=== PATIENT | female | born 1980 | race Caucasian/White ===

== ENCOUNTER → 2017-11-27 12:38 | Outpatient (CLI) | payer OTHER, SELFPAY | PROVIDERS: Family Provider Internal Medicine; PCP Internal Medicine; Visit Provider Physician Assistant | DX: R05 Cough (principal) | CPT/HCPCS: 87081 ==

== ENCOUNTER → 2018-03-01 11:20 | Outpatient (CLI) | payer OTHER, SELFPAY ==
[2018-03-01 15:45] LABS: Absolute Lymphocyte Count 1.53 X10^3/ul (0.83-4.51); Basophil# 0.02 X10^3/uL; Basophil% 0.3 % (0-1); Eosinophil# 0.13 X10^3/uL; Eosinophils% 1.8 % (0-5); Hematocrit 40.3 % (37-47); Hemoglobin 13.3 g/dl (12.0-15.0); Lymphocyte # 1.53 X10^3/ul (4.0); Lymphocyte % 21.3 % (19-41); Mean Corpuscular Volume 87.8 fL (81-99); Mean Platelet Vol. 9.8 fl (6.2-12.0); Monocyte# 0.48 X10^3/uL; Monocyte% 6.7 % (0-10); Neutrophil % 69.8 % (47-70); Platelet Count 336 K/mm3 (150-450); RBC Distribution Width CV 12.9 % (11.6-14.6); RBC Distribution Width SD 40.9 fl (35.1-43.9); Red Blood Count 4.59 M/mm3 (4.2-5.4); White Blood Count 7.2 K/mm3 (4.4-11.0)
[2018-03-01 15:50] LABS: POSITIVE COUNT NO; POSITIVE DIFFERENTIAL NO; POSITIVE MORPHOLOGY NO
[2018-03-01 15:54] LABS: ALB/GLOB Ratio 1.1 RATIO (0.9-2.4); AST(SGOT) 15 U/L (15-37); Alanine Aminotransfer ALT/SGPT 26 U/L (13-56); Albumin, Serum 3.8 g/dL (3.2-5.0); Alkaline Phosphatase 87 U/L (45-117); Anion Gap 8 (5-15); BUN 9 mg/dL (7-18); BUN/Creat Ratio 11.5 RATIO (10-20); Calcium,Total 8.6 mg/dL (8.5-10.1); Chloride 107 mmol/L (98-107); Cholesterol 169 mg/dL (200); Creatinine, Serum 0.78 mg/dL (0.55-1.02); EST Glomerular Filtration Rate 87 mL/min (>60); Est Glom Filt Rate - Afr Amer 106 mL/min (>60); Globulin 3.4 g/dL (2.2-4.2); Glucose 71 mg/dL (74-106); High Density Lipoprotein 46 mg/dL; Protein, Total 7.2 g/dL (6.4-8.2); Sodium Level 141 mmol/L (136-145); Triglycerides 103 mg/dL; Very Low Density Lipoprotein 21 mg/dL (5-40)
== END ==
PROVIDERS: Visit Provider Family Medicine
DX: Z00.00 Encounter for general adult medical examination without abnormal findings (principal); R03.0 Elevated blood-pressure reading, without diagnosis of hypertension
CPT/HCPCS: 36415; 80053; 80061; 85025

== ENCOUNTER → 2020-04-09 17:46 | Outpatient (CLI) | payer OTHER, SELFPAY | PROVIDERS: PCP Family Medicine; Referring Provider Family Medicine; Visit Provider Family Medicine | DX: Z20.828 Contact with and (suspected) exposure to other viral communicable diseases (principal) | CPT/HCPCS: 87635; 94799; U0003 ==

== ENCOUNTER → 2020-05-18 07:31 | Outpatient (CLI) | payer OTHER, SELFPAY ==
--- NOTE | 2020-05-18 07:35 | BI_ITS ---
MAMMOGRAPHY - BILATERAL SCREENING REASON FOR EXAM: Female, 39 years old. Routine annual screening examination. PERTINENT HISTORY: Grandmothers with breast cancer. TECHNIQUE: Digital bilateral breast iveth (3D mammographic acquisition) in the CC and MLO projections. 2-D mediolateral oblique (MLO) and craniocaudad (CC) views of both breasts were obtained. CAD: Full Field Digital Mammography with Computer Added Detection was performed. COMPARISON: None. Baseline examination. FINDINGS: Breast Composition: There are scattered areas of fibroglandular density. There are no dominant masses or suspicious calcifications. Benign-appearing bilateral axillary lymph nodes. No other significant abnormalities are identified. There has been no significant change since the prior study. BI/SCREEN MAMM (CAD) W/IVETH BILAT IMPRESSION: Stable bilateral screening mammogram. Yearly follow-up mammogram recommended. (A) ASSESSMENT CATEGORY: BIRADS Category 2: Benign. A letter regarding these results will be sent to the patient by the facility within 30 days. Approximately 10% of breast cancers are not detected by mammography. A normal mammogram should not delay biopsy of a clinically suspicious abnormality. [id number] Electronically Signed: Max Miller, at 9:00 EDT , Service support ,
[2020-05-18 12:18] LABS: Absolute Lymphocyte Count 1.35 X10^3/uL (0.83-4.51); Basophil# 0.04 X10^3/uL; Basophil% 0.6 % (0-1); Eosinophil# 0.17 X10^3/uL; Eosinophils% 2.4 % (0-5); Hematocrit 40.1 % (37-47); Hemoglobin 12.5 g/dL (12.0-15.0); Lymphocyte # 1.35 X10^3/ul (4.0); Mean Corp Hgb Conc 31.2 g/dL (32-36); Mean Corpuscular Hgb 27.7 pg (27.0-32.0); Mean Corpuscular Volume 88.7 fL (81-99); Mean Platelet Vol. 9.3 fl (6.2-12.0); Monocyte# 0.52 X10^3/uL; Monocyte% 7.3 % (0-10); NRBC Flagged by Analyzer 0 % (0-5); Neutrophil # 5.03 X10^3/uL (2.7-7.7); Neutrophil % 70.6 % (47-70); Platelet Count 421 K/mm3 (150-450); RBC Distribution Width CV 13.4 % (11.6-14.6); RBC Distribution Width SD 43.5 fl (35.1-43.9); Red Blood Count 4.52 M/mm3 (4.2-5.4); White Blood Count 7.1 K/mm3 (4.4-11.0)
[2020-05-18 12:59] LABS: ALB/GLOB Ratio 0.9 RATIO (0.9-2.4); AST(SGOT) 20 U/L (15-37); Alanine Aminotransfer ALT/SGPT 31 U/L (13-56); Albumin, Serum 3.4 g/dL (3.2-5.0); Alkaline Phosphatase 94 U/L (45-117); Anion Gap 4 (5-15); BUN 10 mg/dL (7-18); BUN/Creat Ratio 13.9 RATIO (10-20); Calcium,Total 8.8 mg/dL (8.5-10.1); Chloride 107 mmol/L (98-107); Cholesterol 222 mg/dL (200); Creatinine, Serum 0.72 mg/dL (0.55-1.02); EST Glomerular Filtration Rate 95 mL/min (>60); Est Glom Filt Rate - Afr Amer 115 mL/min (>60); Globulin 3.6 g/dL (2.2-4.2); Glucose 80 mg/dL (74-106); High Density Lipoprotein 60 mg/dL; Potassium 3.9 mmol/L (3.5-5.1); Sodium Level 137 mmol/L (136-145); Triglycerides 129 mg/dL; Very Low Density Lipoprotein 26 mg/dL (5-40)
== END ==
PROVIDERS: PCP Family Medicine; Referring Provider Obstetrics & Gynecology; Visit Provider Obstetrics & Gynecology
DX: Z12.31 Encounter for screening mammogram for malignant neoplasm of breast (principal); Z00.00 Encounter for general adult medical examination without abnormal findings; R03.0 Elevated blood-pressure reading, without diagnosis of hypertension; Z82.49 Family history of ischemic heart disease and other diseases of the circulatory system
CPT/HCPCS: 36415; 77063; 77067; 80053; 80061; 85025

== ENCOUNTER → 2020-06-10 13:35 | Outpatient (CLI) | payer OTHER, SELFPAY ==
--- NOTE | 2020-06-10 13:39 | VDLE_ITS ---
Reason For Study: Swelling Procedure LEFT This is a venous duplex using B-mode, color GSV is normal. flow and spectral Doppler. CFV is compressible, spontaneous, phasic, Exam performed in department. competent, and demonstrates normal A preliminary report was called and/or faxed augmentation. to Priyanka Qiu. FV is compressible, spontaneous, phasic, competent and demonstrates normal augmentation. POP V is compressible, spontaneous, phasic, competent and demonstrates normal augmentation. T/P Trunk is compressible. PTV is compressible. LT PerV is compressible. Interpretation Summary Deep veins of the left lower extremity are patent and compressible segmentally. There is no evidence of left lower extremity deep vein thrombosis. Valvular competence appears intact within the proximal deep venous system on the left . The left great saphenous vein appears patent and compressible segmentally. Ordering Physician: Jeanne Baer Referring Physician: Rose Aden Performed By: Kassi Small RVT and Student
== END ==
PROVIDERS: PCP Family Medicine; Referring Provider Obstetrics & Gynecology; Visit Provider Obstetrics & Gynecology
DX: M79.672 Pain in left foot (principal); R22.42 Localized swelling, mass and lump, left lower limb
CPT/HCPCS: 93971

== ENCOUNTER → 2020-08-04 08:33 | Outpatient (CLI) | payer OTHER, SELFPAY ==
[2020-08-04 12:34] LABS: Anion Gap 9 (5-15); BUN 11 mg/dL (7-18); BUN/Creat Ratio 13.3 RATIO (10-20); Calcium,Total 8.6 mg/dL (8.5-10.1); Chloride 104 mmol/L (98-107); Creatinine, Serum 0.83 mg/dL (0.55-1.02); EST Glomerular Filtration Rate 81 mL/min (>60); Est Glom Filt Rate - Afr Amer 98 mL/min (>60); Glucose 86 mg/dL (74-106); Potassium 3.8 mmol/L (3.5-5.1); Sodium Level 137 mmol/L (136-145)
== END ==
PROVIDERS: PCP Family Medicine; Visit Provider Family Medicine
DX: I10 Essential (primary) hypertension (principal)
CPT/HCPCS: 36415; 80048

== ENCOUNTER → 2021-07-28 15:38 | Outpatient (CLI) | payer OTHER, SELFPAY ==
--- NOTE | 2021-07-28 15:41 | BI_ITS ---
MAMMOGRAPHY - BILATERAL SCREENING REASON FOR EXAM: Female, 41 years old. Routine annual screening examination. PERTINENT HISTORY: Grandmother with breast cancer. TECHNIQUE: Digital bilateral breast iveth (3D mammographic acquisition) in the CC and MLO projections. 2-D mediolateral oblique (MLO) and craniocaudad (CC) views of both breasts were obtained. CAD: Full Field Digital Mammography with Computer Added Detection was performed. COMPARISON: Comparison is made with prior study dated 04/28/2020. FINDINGS: Breast Composition: There are scattered areas of fibroglandular density. There are no dominant masses or suspicious calcifications. No other significant abnormalities are identified. There has been no significant change since the prior study. BI/SCRN MAMM (CAD)W/IVETH BILAT IMPRESSION: Stable bilateral screening mammogram. Yearly follow-up mammogram recommended. (A) ASSESSMENT CATEGORY: BIRADS Category 1: Negative. A letter regarding these results will be sent to the patient by the facility within 30 days. Approximately 10% of breast cancers are not detected by mammography. A normal mammogram should not delay biopsy of a clinically suspicious abnormality. [id number] Electronically Signed: Max Miller MD at 8:17 EST , Service support ,
== END ==
PROVIDERS: PCP Family Medicine; Referring Provider Obstetrics & Gynecology; Visit Provider Obstetrics & Gynecology
DX: Z12.31 Encounter for screening mammogram for malignant neoplasm of breast (principal); Z80.3 Family history of malignant neoplasm of breast
CPT/HCPCS: 77063; 77067

== ENCOUNTER → 2022-08-08 | Outpatient (CLI) | payer OTHER, SELFPAY ==
--- NOTE | 2022-08-08 16:04 | BI_ITS ---
MAMMOGRAPHY - BILATERAL SCREENING REASON FOR EXAM: Female, 42 years old. Routine annual screening examination. PERTINENT HISTORY: Grandmothers with breast cancer. TECHNIQUE: Digital bilateral breast iveth (3D mammographic acquisition) in the CC and MLO projections. 2-D mediolateral oblique (MLO) and craniocaudad (CC) views of both breasts were obtained. CAD: Full Field Digital Mammography with Computer Added Detection was performed. COMPARISON: Comparison is made with prior study dated 07/28/2021 and 05/18/2020. FINDINGS: Breast Composition: There are scattered areas of fibroglandular density. There are no dominant masses or suspicious calcifications. No other significant abnormalities are identified. There has been no significant change since the prior study. BI/SCRN MAMM (CAD)W/IVETH BILAT IMPRESSION: Stable bilateral screening mammogram. Yearly follow-up mammogram recommended. (A) ASSESSMENT CATEGORY: BIRADS Category 1: Negative. A letter regarding these results will be sent to the patient by the facility within 30 days. Approximately 10% of breast cancers are not detected by mammography. A normal mammogram should not delay biopsy of a clinically suspicious abnormality. [id number] Electronically Signed: Max Miller MD at 9:06 EST ,
== END | disposition home or self-care (01) ==
PROVIDERS: PCP Family Medicine; Referring Provider Obstetrics & Gynecology; Visit Provider Obstetrics & Gynecology
DX: Z12.31 Encounter for screening mammogram for malignant neoplasm of breast (principal); Z80.3 Family history of malignant neoplasm of breast
CPT/HCPCS: 77063; 77067

== ENCOUNTER → 2023-08-10 | Outpatient (CLI) | payer OTHER, SELFPAY ==
--- NOTE | 2023-08-10 16:04 | BI_ITS ---
MAMMOGRAPHY - BILATERAL SCREENING REASON FOR EXAM: Female, 43 years old. Routine annual screening examination. PERTINENT HISTORY: Grandmother with breast cancer. TECHNIQUE: Digital bilateral breast iveth (3D mammographic acquisition) in the CC and MLO projections. 2-D mediolateral oblique (MLO) and craniocaudad (CC) views of both breasts were obtained. CAD: Full Field Digital Mammography with Computer Added Detection was performed. COMPARISON: Comparison is made with prior study dated August 08, 2022 and July 28, 2021. FINDINGS: Breast Composition: There are scattered areas of fibroglandular density. There are no dominant masses or suspicious calcifications. No other significant abnormalities are identified. There has been no significant change since the prior study. BI/SCRN MAMM (CAD)W/IVETH BILAT IMPRESSION: Stable bilateral screening mammogram. Yearly follow-up mammogram recommended. (A) ASSESSMENT CATEGORY: BIRADS Category 1: Negative. A letter regarding these results will be sent to the patient by the facility within 30 days. Approximately 10% of breast cancers are not detected by mammography. A normal mammogram should not delay biopsy of a clinically suspicious abnormality. [id number] Electronically Signed: Max Miller MD at 8:11 EST ,
== END | disposition home or self-care (01) ==
LOC: OPBI 08-11 08:09
PROVIDERS: PCP Family Medicine; Referring Provider Family Medicine; Visit Provider Family Medicine
DX: Z12.31 Encounter for screening mammogram for malignant neoplasm of breast (principal)
CPT/HCPCS: 77063; 77067

== ENCOUNTER → 2023-08-17 | Outpatient (CLI) | payer OTHER, SELFPAY ==
--- OUTSIDE RECORDS SUMMARY | 2023-08-17 10:59 | XMS RPT_ITS | CCD ---
Author Name Unknown Address [facility], [address] [place] [address] Organization [facility] Care Team Providers Care Layout Operator Name Role Phone Rose Aden Primary Care Provider [phone] Allergies Allergy Classification Reported Allergen(s) Allergy Type Date of Onset Reaction(s) Facility (3 sources) Amoxicillin / Clavulanate; Translations: [AMOXICILLIN-POT CLAVULANATE] Drug Allergy 10-14-2015 Rash [facility] Medications Current Medications Medication Drug Class(es) Dates Sig (Normalized) Sig (Original) doxycycline monohydrate 100 mg oral tablet (2 sources) Tetracycline-cla ss Drug Start: 07-12-2022 End: 07-19-2022 take 1 tablet by mouth twice daily doxycycline monohydrate 100 mg tablet Indications: Rhinosinusitis Take 1 tablet by mouth twice daily for 7 days. 14 tablet 0 07/12/2022 07/19/2022 Active Completed/Discontinued Medications Medication Drug Class(es) Dates Sig (Normalized) Sig (Original) losartan potassium 25 mg oral tablet (2 sources) Angiotensin 2 Receptor Matti Start: 06-14-2022 take 1 tablet by mouth once daily losartan (COZAAR) 25 mg tablet Take 25 mg by mouth once daily. 0 06/14/2022 Active Problems Problem Classification Problem Date Documented Da te Episodic/Chronic Other upper respiratory disease (1 source) Chronic rhinitis; Translations: [Unspecified sinusitis (chronic)] Chronic Other upper respiratory infections (1 source) Viral upper respiratory tract infection; Translations: [Acute upper respiratory infection, unspecified] Episodic Results Test Name Value Interpretation Reference Range Facil ity Vital Signs Date Time Vital Sign Value Performing Clinician Faci lity 07-12-2022 18:15-0500 Body temperature 97.59 [degF] Sally Etienne APRN.PROCESSOR GRAIN Work Phone: [facility] 07-12-2022 18:15-0500 Body weight 101.61 kg Sally Etienne APRN.PROCESSOR GRAIN Work Phone: [facility] 07-12-2022 18:15-0500 Diastolic blood pressure 76 mm[Hg] Sally Etienne APRN.PROCESSOR GRAIN Work Phone: [facility] 07-12-2022 18:15-0500 Heart rate 105 /min Sally Etienne APRN.PROCESSOR GRAIN Work Phone: [facility] 07-12-2022 18:15-0500 Respiratory rate 18 /min Sally Etienne APRN.PROCESSOR GRAIN Work Phone: [facility] 07-12-2022 18:15-0500 SaO2% (BldA) [Mass fraction] 98 % Sally Eitenne APRN.PROCESSOR GRAIN Work Phone: [facility] 07-12-2022 18:15-0500 Systolic blood pressure 128 mm[Hg] Sally Etienne APRN.PROCESSOR GRAIN Work Phone: [facility] Encounters Encounter Date Encounter Type Care Provider Facility Start: 07-13-2022 Telephone encounter Patricia Stein MIKY.PROCESSOR GRAIN Work Phone: [facility] Plan of Treatment Date Care Activity Detail Author Start: 12-22-2026 Urine microalbumin profile DTAP,TDAP,TD (2 - Td or Tdap) [facility] Start: 07-12-2022 End: 07-26-2022 Influenza virus A and B RNA and SARS-CoV-2 (COVID-19) N gene panel - Respiratory specimen by ALIA with probe detection COVID WITH FLUA+B, ROUTINE Microbiology Routine Viral URI with cough Expected: 07/12/2022, Expires: 07/26/2022 [facility] Work Phone: Immunizations Immunization Date Immunization Notes Care Provider Fa kory 12-22-2016 tetanus toxoid, redu harsha diphtheria toxoid, and acellular pertussis vaccine, adsorbed Sally Etienne APRN.PROCESSOR GRAIN Work Phone: [facility] 07-12-2015 influenza, seasonal, injectable, preservative free Sally Jaimie CHAVEZ Work Phone: [facility] Payers Date Payer Category Payer Unknown [facility] [id number] 2022-Present [phone] [address] [place] [address] [facility] [id number] 2022 Unknown [id number] Social History Date Type Detail Facility Start: 07-12-2022 Tobacco smoking stat [facility] Never smoked tobacco [facility] Start: 07-12-2022 Tobacco use and exposure Smokeless tobacco non-user [facility] Start: 07-12-2022 Alcohol intake Lifetime non-d jostin (finding) [facility] Start: 1980 Sex Assigned At Not on file [facility] Start: 2022 End: 07-12-2022 Exposure to SARS-CoV-2 (event) Not sure [facility] Work Phone: Note 07-13-2022 Telephone Encounter - Bridget Giraldo - 07/13/2022 7:03 AM ESTTelephone Encounter - Patricia Stein APRN.CNP - 07/13/2022 6:55 AM EST Note Date & Type Note Facility 07-13-2022 Miscellaneous Notes Formattin g of this note might be different from the original. Patient given results and verbalized understanding of instructions given. Bridget Giraldo Please notify of negative influenza and covid test. Continue comfort measures for symptoms as you would for a cold. Any worsening symptoms follow up with PCP or ER. Patricia Stein APRN.CNP documented in this encounter [facility] Influenza virus A and B RNA and SARS-CoV-2 (COVID-19) N gene panel ALIA+probe (Resp) 07-12-2022 Note Date & Type Note Facility 07-12-2022 Influenza virus A and B RNA and SARS-CoV-2 (COVID-19) N gene panel ALIA+probe (Resp) COVID 19 RESULT: SARS-CoV-2 (Agent of COVID-19) Not Detected by RT-PCR or equivalent method. sun [id number] (EVARISTO)_EUA This test was developed and its performance characteristics determined by [facility]'s [facility] [place]. This test has been authorized by FDA under an Emergency Use Authorization (EUA). This test has been validated in accordance with the FDA's Guidance Document Policy for Diagnostics Testing in Laboratories Certified to Perform High Complexity Testing under CLIA prior to Emergency use Authorization for Coronavirus Disease 2019 during the Public Health Emergency issued on October 19, 2019. Test performed by [facility], [facility] [place], [address] [place] [address]. INFLUENZA A PCR: Negative for Influenza A by RT-PCR INFLUENZA B PCR: Negative for Influenza B by RT-PCR [facility] Progress note 07-12-2022 Note Date & Type Note Facility 07-12-2022 Note HNO ID: [id number] Author: Sally Etienne APRN.PROCESSOR GRAIN Service: ? Author Type: Nurse Practitioner Type: Progress Notes Filed: 07/12/2022 6:30 PM Note Text: Subjective Headache Pertinent negatives include no fever, no shortness of breath, no nausea and no vomiting. Sada Avila is a 42 year old female who presents with headache, congestion, cough, sinus pain. Has had symptoms for 2 weeks but felt worse today. She has been taking tylenol, dayquil, nyquil, and mucinex without improvement. She has not had a fever. She has had sick contacts at work. Review of Systems Constitutional: Negative for chills and fever. HENT: Positive for congestion, ear pain and sinus pain. Negative for sore throat. Respiratory: Positive for cough. Negative for shortness of breath. Cardiovascular: Negative for chest pain. Gastrointestinal: Negative for diarrhea, nausea and vomiting. Neurological: Positive for headaches. BP 128/76 Pulse 105 Temp 36.4 ?C (97.6 ?F) Resp 18 Wt 101.6 kg (224 lb) LMP 11/14/2018 (Approximate) SpO2 98% No past medical history on file. No past surgical history on file. ALLERGIES Augmentin [Amoxicillin-Pot Clavulanate] MEDICATIONS losartan (COZAAR) 25 mg tablet Take 25 mg by mouth once daily. megestrol (MEGACE) 40 mg tablet Take 40 mg by mouth once daily. doxycycline monohydrate 100 mg tablet Take 1 tablet by mouth twice daily for 7 days. No family history on file. Social History Tobacco Use Smoking status: Never Smokeless tobacco: Never Substance Use Topics Alcohol use: Never Drug use: Never Objective Physical Exam Vitals and nursing note reviewed. Constitutional: Appearance: Normal appearance. HENT: Right Ear: Tympanic membrane, ear canal and external ear normal. Left Ear: Tympanic membrane, ear canal and external ear normal. Nose: Nasal tenderness, mucosal edema, congestion and rhinorrhea present. Mouth/Throat: Pharynx: Uvula midline. No oropharyngeal exudate or posterior oropharyngeal erythema. Cardiovascular: Rate and Rhythm: Normal rate and regular rhythm. Heart sounds: Normal heart sounds. Pulmonary: Effort: Pulmonary effort is normal. No respiratory distress. Breath sounds: Normal breath sounds. No wheezing or rales. Musculoskeletal: Cervical back: Neck supple. Lymphadenopathy: Cervical: No cervical adenopathy. Skin: General: Skin is warm and dry. Findings: No erythema or rash. Neurological: Mental Status: She is alert. ASSESSMENT/PLAN: 1. Rhinosinusitis - ICD9: 473.9, ICD10: J31.0, J32.9 (primary diagnosis) - Will begin treatment with as per antibiotic as written, see orders - Supportive care with plenty of fluids, rest, and analgesia prn. - DOXYCYCLINE MONOHYDRATE 100 MG TABLET 2. Viral URI with cough - ICD9: 465.9, ICD10: J06.9 - Discussed viral etiology and rationale for treatment. - Symptomatic treatment with prn analgesia - Supportive care with fluids and rest - COVID WITH FLUA+B, ROUTINE - Follow-up with your PCP in 3-5 days if symptoms have not improved or sooner if symptoms worsen - Discussed red flags and need for immediate medical evaluation if any occur. - Discussed supportive care treatment with fluids, rest and analgesia. - Discussed expected course of illness Sally Etienne APRN.JAZZY [facility] History of Present illness Narrative 07-12-2022 Sally Etienne APRN.JAZZY - 07/12/2022 6:28 PM EST Note Date & Type Note Facility 07-12-2022 History of Presen t illness Narrative Subjective Headache Pertinent negatives include no fever, no shortness of breath, no nausea and no vomiting. Sada Avila is a 42 year old female who presents with headache, congestion, cough, sinus pain. Has had symptoms for 2 weeks but felt worse today. She has been taking tylenol, dayquil, nyquil, and mucinex without improvement. She has not had a fever. She has had sick contacts at work. Review of Systems Constitutional: Negative for chills and fever. HENT: Positive for congestion, ear pain and sinus pain. Negative for sore throat. Respiratory: Positive for cough. Negative for shortness of breath. Cardiovascular: Negative for chest pain. Gastrointestinal: Negative for diarrhea, nausea and vomiting. Neurological: Positive for headaches. BP 128/76 Pulse 105 Temp 36.4 C (97.6 F) Resp 18 Wt 101.6 kg (224 lb) LMP 11/14/2018 (Approximate) SpO2 98% No past medical history on file. No past surgical history on file. ALLERGIES Augmentin [Amoxicillin-Pot Clavulanate] MEDICATIONS losartan (COZAAR) 25 mg tablet Take 25 mg by mouth once daily. megestrol (MEGACE) 40 mg tablet Take 40 mg by mouth once daily. doxycycline monohydrate 100 mg tablet Take 1 tablet by mouth twice daily for 7 days. No family history on file. Social History Tobacco Use Smoking status: Never Smokeless tobacco: Never Substance Use Topics Alcohol use: Never Drug use: Never Objective Physical Exam Vitals and nursing note reviewed. Constitutional: Appearance: Normal appearance. HENT: Right Ear: Tympanic membrane, ear canal and external ear normal. Left Ear: Tympanic membrane, ear canal and external ear normal. Nose: Nasal tenderness, mucosal edema, congestion and rhinorrhea present. Mouth/Throat: Pharynx: Uvula midline. No oropharyngeal exudate or posterior oropharyngeal erythema. Cardiovascular: Rate and Rhythm: Normal rate and regular rhythm. Heart sounds: Normal heart sounds. Pulmonary: Effort: Pulmonary effort is normal. No respiratory distress. Breath sounds: Normal breath sounds. No wheezing or rales. Musculoskeletal: Cervical back: Neck supple. Lymphadenopathy: Cervical: No cervical adenopathy. Skin: General: Skin is warm and dry. Findings: No erythema or rash. Neurological: Mental Status: She is alert. ASSESSMENT/PLAN: 1. Rhinosinusitis - ICD9: 473.9, ICD10: J31.0, J32.9 (primary diagnosis) - Will begin treatment with as per antibiotic as written, see orders - Supportive care with plenty of fluids, rest, and analgesia prn. - DOXYCYCLINE MONOHYDRATE 100 MG TABLET 2. Viral URI with cough - ICD9: 465.9, ICD10: J06.9 - Discussed viral etiology and rationale for treatment. - Symptomatic treatment with prn analgesia - Supportive care with fluids and rest - COVID WITH FLUA+B, ROUTINE - Follow-up with your PCP in 3-5 days if symptoms have not improved or sooner if symptoms worsen - Discussed red flags and need for immediate medical evaluation if any occur. - Discussed supportive care treatment with fluids, rest and analgesia. - Discussed expected course of illness Sally Etienne APRN.JAZZY documented in this encounter [facility] Instructions 07-12-2022 Patient Instructions Note Date & Type Note Facility 07-12-2022 Instructions Sally Etienne APRN.CNP - 07/12/2022 6:27 PM EST Images from the original note were not included. ASSESSMENT/PLAN: 1. Rhinosinusitis - ICD9: 473.9, ICD10: J31.0, J32.9 (primary diagnosis) - Will begin treatment with as per antibiotic as written, see orders - Supportive care with plenty of fluids, rest, and analgesia prn. - DOXYCYCLINE MONOHYDRATE 100 MG TABLET 2. Viral URI with cough - ICD9: 465.9, ICD10: J06.9 - Discussed viral etiology and rationale for treatment. - Symptomatic treatment with prn analgesia - Supportive care with fluids and rest - COVID WITH FLUA+B, ROUTINE - Follow-up with your PCP in 3-5 days if symptoms have not improved or sooner if symptoms worsen - Discussed red flags and need for immediate medical evaluation if any occur. - Discussed supportive care treatment with fluids, rest and analgesia. - Discussed expected course of illness Sally Etienne APRN.CNP Adult Sinusitis Patient Education What is Sinusitis? Sinusitis [axhq-sgf-[id number]-[id number]] is inflammation of the sinuses or swelling of the lining of the sinus cavity or nose. During an infection the sinuses become blocked with fluid causing swelling of the lining of the sinuses. Symptoms: (viral and bacterial infections) Stuffy nose Runny nose Postnasal drip Fever Toothache Headache Tiredness Cough Sore throat Face and head pressure and or pain Common causes: 98% of sinus infections are viral caused by viruses. Risk Factors of Sinusitis Include: Allergies, air pollution, indoor humidity and outdoor temperature changes, andstructural changes in the nose may contribute to sinus pain, pressure and congestion. When to get help? Temperature greater than 100.4 F Symptoms lasting more than 10 days or worsening symptoms greater than 7-10 days. If you do not improve or worsen after a course of antibiotics, you should be re-examined. Diagnosis and Treatment: Your healthcare provider will ask a number of questions about your symptoms and how long they have occurred. If symptoms of sinusitis persist greater than 10 days, it is possible you have a bacterial sinus infection and an antibiotic is prescribed. If it is viral, antibiotics will not help. You may be instructed to take [id number]-[id number] medications for symptoms. including fever reducers acetaminophen or ibuprofen, nasal saline spray, cough and cold preparations and decongestants as prescribed by the physician, nurse practitioner or physician warehouse assistant. Self-Care and Prevention: Rest Fluids for hydration Good hand washing Humidifier Avoid smoking and exposure to second hand smoke Avoid sick contacts documented in this encounter [facility] Evaluation note Note Date & Type Note Facility documented in this encounter [facility] Health Concerns Infection Onset Date Last Indicated Resolved Time COVID-19 Rule-Out 07/12/2022 07/12/2022 Infection Onset Date Last Indicated Resolved Time COVID-19 Rule-Out 07/12/2022 07/12/202207/1307/13/2022 6:44 AM EST Summary Purpose Family History No Family History Records Found Advance Directives No Advanced Directives Records Found Additional Source Comments Source Comments (unrecognize d section and content) In the event this informatio n is protected by the Federal Confidentiality of Alcohol and Drug Abuse Patient Records regulations: The Federal rules restrict any use of the information to criminally investigate or prosecute any alcohol or drug abuse patient.[facility] the event this information is protected by the Federal Confidentiality of Alcohol and Drug Abuse Patient Records regulations: The Federal rules restrict any use of the information to criminally investigate or prosecute any alcohol or drug abuse patient.[facility] Reason for Visit (unrecogniz ed section and content) Reason Comments Results Care Teams (unrecognized sec tion and content) Layout Operator Relationship Specialty Start Date End Date Rose Aden [address] [place] [address] PCP - General Family Medicine 11/21/18 INFORMATION SOURCE (unrecogn ized section and content) FOR RECORDS PERTAINING TO PATIENTS WHO ARE OR HAVE BEEN ENROLLED IN A CHEMICAL DEPENDENCY/SUBSTANCEABUSE PROGRAM, SOME INFORMATION MAY BE OMITTED. This clinical summary was aggregated from multiple sources. Caution should be exercised in using it in the provision of clinical care. This summary normalizes information from multiple sources, and as a consequence, information in this document may materially change the coding, format and clinical context of patient data. In addition, data may be omitted in some cases. CLINICAL DECISIONS SHOULD BE BASED ON THE PRIMARY CLINICAL RECORDS. [facility]. provides no warranty or guarantee of the accuracy or completeness of information in this document.
[2023-08-17 12:17] LABS: Absolute Lymphocyte Count 1.75 X10^3/uL (0.83-4.51); Absolute Neutrophil Count 6.7 X10^3/uL (2.0-7.7); Basophil# 0.05 X10^3/uL; Basophil% 0.5 % (0-1); Eosinophil# 0.18 X10^3/uL; Eosinophils% 1.9 % (0-5); Hematocrit 43.4 % (37-47); Hemoglobin 13.7 g/dL (12.0-15.0); Lymphocyte # 1.75 X10^3/ul (0.83-4.51); Lymphocyte % 18.6 % (19-41); Mean Corp Hgb Conc 31.6 g/dL (32-36); Mean Corpuscular Hgb 27.9 pg (27.0-32.0); Mean Corpuscular Volume 88.4 fL (81-99); Mean Platelet Vol. 9.3 fl (6.2-12.0); Monocyte# 0.69 X10^3/uL; Monocyte% 7.3 % (0-10); NRBC Flagged by Analyzer 0 % (0-5); Neutrophil # 6.68 X10^3/uL (2.7-7.7); Neutrophil % 71.3 % (47-70); Platelet Count 401 K/mm3 (150-450); RBC Distribution Width CV 13.3 % (11.6-14.6); RBC Distribution Width SD 43.2 fl (35.1-43.9); Red Blood Count 4.91 M/mm3 (4.2-5.4); White Blood Count 9.4 K/mm3 (4.4-11.0)
[2023-08-17 12:37] LABS: ALB/GLOB Ratio 1.1 RATIO (0.9-2.4); AST(SGOT) 16 U/L (15-37); Alanine Aminotransfer ALT/SGPT 39 U/L (13-56); Albumin, Serum 3.7 g/dL (3.2-5.0); Alkaline Phosphatase 95 U/L (45-117); Anion Gap 7 (5-15); BUN 12 mg/dL (7-18); BUN/Creat Ratio 14.4 RATIO (10-20); Calcium,Total 9.2 mg/dL (8.5-10.1); Chloride 110 mmol/L (98-107); Cholesterol 189 mg/dL (200); Creatinine, Serum 0.84 mg/dL (0.55-1.02); EST Glomerular Filtration Rate 79 mL/min (>60); Est Glom Filt Rate - Afr Amer 95 mL/min (>60); Globulin 3.5 g/dL (2.2-4.2); Glucose 95 mg/dL (74-106); High Density Lipoprotein 33 mg/dL; Potassium 3.9 mmol/L (3.5-5.1); Protein, Total 7.2 g/dL (6.4-8.2); Sodium Level 141 mmol/L (136-145); Triglycerides 68 mg/dL; Very Low Density Lipoprotein 14 mg/dL (5-40)
== END | disposition home or self-care (01) ==
LOC: BFHLAB 10:25
PROVIDERS: PCP Family Medicine; Visit Provider Family Medicine
DX: I10 Essential (primary) hypertension (principal); R19.7 Diarrhea, unspecified
CPT/HCPCS: 36415; 80053; 80061; 85025

== ENCOUNTER → 2023-10-26 | Outpatient (CLI) | payer OTHER, SELFPAY ==
[2023-10-31 21:07] LABS: HPV APTIMA, High Risk Negative (Negative)
== END | disposition home or self-care (01) ==
PROVIDERS: PCP Family Medicine; Visit Provider Advanced Practice Midwife
DX: Z12.4 Encounter for screening for malignant neoplasm of cervix (principal)
CPT/HCPCS: 87624; 88175; G0145

== ENCOUNTER → 2023-11-03 | Outpatient (CLI) | payer OTHER, SELFPAY ==
--- NOTE | 2023-11-03 11:26 | US_ITS ---
STUDY: ULTRASOUND TRANSVAGINAL CLINICAL: Female, 43 years old. abnormal uterine bleeding TECHNIQUE: Transvaginal COMPARISON: None. FINDINGS: Normal uterine size measuring 7.4 x 4.2 x 4.5 cm in maximal craniocaudal dimension. 0.7 cm round hypoechoic mass within the anterior body of uterus consistent with a subserosal fibroid. Another 0.7 cm hypoechoic mass within the myometrium in the posterior fundus the uterus consistent with an intramural fibroid.. Normal endometrial thickness measuring 6 mm. 1 cm hypoechoic mass within the endometrium and correlation with hysteroscopy would be useful.. Normal uterine cervix. Normal right ovary, measuring 3.4 x 2.3 x 1.1 cm. There are multiple follicles without a dominant cyst. Normal left ovary, measuring 2.1 x 1.6 x 1.3 cm. There are multiple follicles without a dominant cyst. There is no free fluid in the pelvis. Polycystic ovary disease: No. US/Transvaginal Non- IMPRESSION: 1. 1 cm endometrial mass and correlation with hysteroscopy would be useful. 2. Small uterine fibroids with overall normal sized uterus. Electronically Signed: Dino June MD at 21:52 EDT ,
--- OUTSIDE RECORDS SUMMARY | 2023-11-03 13:53 | XMS RPT_ITS | CCD ---
Author Name Unknown Address [address] [facility] [address] [place] [address] Organization [facility] Care Team Providers Care Motion Picture Equipment Machinist Name Role Phone Rose Aden Primary Care Provider Allergies Allergy Classification Reported Allergen(s) Allergy Type Date of Onset Reaction(s) Facility (3 sources) Amoxicillin / Clavulanate; Translations: [AMOXICILLIN-POT CLAVULANATE] Drug Allergy 10-14-2015 Rash [facility] Medications Current Medications Medication Drug Class(es) Dates [...] 18:15-0500 Body temperature 97.59 [degF] Sally Etienne APRN.ELECTRONIC WARFARE SPECIALIST Work Phone: [facility] 07-12-2022 18:15-0500 Body weight 101.61 kg Sally Etienne APRN.ELECTRONIC WARFARE SPECIALIST Work Phone: [facility] 07-12-2022 18:15-0500 Diastolic blood pressure 76 mm[Hg] Sally Etienne APRN.ELECTRONIC WARFARE SPECIALIST Work Phone: [facility] 07-12-2022 18:15-0500 Heart rate 105 /min Sally Etienne APRN.ELECTRONIC WARFARE SPECIALIST Work Phone: [facility] 07-12-2022 18:15-0500 Respiratory rate 18 /min Sally Etienne APRN.ELECTRONIC WARFARE SPECIALIST Work Phone: [facility] 07-12-2022 18:15-0500 SaO2% (BldA) [Mass fraction] 98 % Sally Etienne APRN.ELECTRONIC WARFARE SPECIALIST Work Phone: [facility] 07-12-2022 18:15-0500 Systolic blood pressure 128 mm[Hg] Sally Etienne APRN.ELECTRONIC WARFARE SPECIALIST Work Phone: [facility] Encounters Encounter Date Encounter Type Care Provider Facility Start: 07-13-2022 Telephone encounter Patricia Stein MIKY.ELECTRONIC WARFARE SPECIALIST Work Phone: [facility] Plan of Treatment Date Care Activity Detail Author Start: 12-22-2026 Urine microalbumin profile DTAP,TDAP,TD (2 - Td or Tdap) [facility] Start: 07-12-2022 End: 07-26-2022 Influenza virus A and B RNA and SARS-CoV-2 (COVID-19) N gene panel - Respiratory specimen by ALIA with probe detection COVID WITH FLUA+B, ROUTINE Microbiology Routine Viral URI with cough Expected: 07/12/2022, Expires: 07/26/2022 [facility] Work Phone: Immunizations Immunization Date Immunization Notes Care Provider Sarah horn 12-22-2016 tetanus toxoid, redu harsha diphtheria toxoid, and acellular pertussis vaccine, adsorbed Sally Etienne APRN.ELECTRONIC WARFARE SPECIALIST Work Phone: [facility] 07-12-2015 influenza, seasonal, injectable, preservative free Sally Jaimie CHAVEZ Work Phone: [facility] Payers Date Payer Category Payer Unknown MMO [facility] [id number] 2022-Present [phone] [address] [place] [address] [facility] [id number] 2022 Unknown [id number] Social History Date Type Detail Facility Start: 07-12-2022 Tobacco smoking stat [facility] Never smoked tobacco [facility] Start: 07-12-2022 Tobacco use and exposure Smokeless tobacco non-user [facility] Start: 07-12-2022 Alcohol intake Lifetime non-d jostin (finding) [facility] Start: 1980 Sex Assigned At Not on file C [facility] Start: 2022 End: 07-12-2022 Exposure to SARS-CoV-2 (event) Not sure [facility] Work Phone: Note 07-13-2022 Telephone Encounter - [...] Patricia Stein APRN.CNP documented in this encounter [facility] Influenza virus A and B RNA and SARS-CoV-2 (COVID-19) N gene panel ALIA+probe (Resp) 07-12-2022 Note Date & Type Note Facility 07-12-2022 Influenza virus A and B RNA and SARS-CoV-2 (COVID-19) N gene panel ALIA+probe (Resp) COVID 19 RESULT: SARS-CoV-2 (Agent of COVID-19) Not Detected by RT-PCR or equivalent method. sun [id number] (EVARISTO)_EUA This test was developed and its performance characteristics determined by [facility]'s [facility] [place]. This test has been authorized by FDA under an Emergency Use Authorization (EUA). This test has been validated in accordance with the FDA's Guidance Document Policy for Diagnostics Testing in Laboratories Certified to Perform High Complexity Testing under CLIA prior to Emergency use Authorization for Coronavirus Disease 2019 during the Public Health Emergency issued on October 19, 2019. Test performed by [facility], [facility] [place], [address] [place] [address]. INFLUENZA A PCR: Negative for Influenza A by RT-PCR INFLUENZA B PCR: Negative for Influenza B by RT-PCR [facility] Progress note 07-12-2022 Note Date & Type Note Facility 07-12-2022 Note HNO ID: [id number] Author: Sally Etienne APRN.ELECTRONIC WARFARE SPECIALIST Service: ? Author Type: Nurse Practitioner Type: [...] expected course of illness Sally Etienne APRN.JAZZY [facility] History of Present illness Narrative 07-12-2022 Sally [...] expected course of illness Sally Etienne APRN.CNP documented in this encounter [facility] Instructions 07-12-2022 Patient Instructions Note Date & [...] Sinusitis Patient Education What is Sinusitis? Sinusitis [xslu-ehz-dffj-tis] is inflammation of the sinuses or swelling [...] help. You may be instructed to take aift-ked-pprjfia medications for symptoms. including fever reducers acetaminophen or ibuprofen, nasal saline spray, cough and cold preparations and decongestants as prescribed by the physician, nurse practitioner or physician administrative personal assistant. Self-Care and Prevention: Rest Fluids for hydration Good hand washing Humidifier Avoid smoking and exposure to second hand smoke Avoid sick contacts documented in this encounter [facility] Evaluation note Note Date & Type Note Facility documented in this encounter [facility] Health Concerns Infection Onset Date Last Indicated Resolved Time COVID-19 Rule-Out 07/12/2022 07/12/2022 Infection Onset Date Last Indicated Resolved Time COVID-19 Rule-Out 07/12/2022 07/12/2022 07/13/2022 6:44 AM EST Summary Purpose Family History [...] or prosecute any alcohol or drug abuse [facility] the event this information is protected by the Federal Confidentiality of Alcohol and Drug Abuse Patient Records regulations: The Federal rules restrict any use of the information to criminally investigate or prosecute any alcohol or drug abuse patient.[facility] Reason for Visit (unrecogniz ed section and content) Reason Comments Results Care Teams (unrecognized sec tion and content) Motion Picture Equipment Machinist Relationship Specialty Start Date End Date Rose Aden [address] [place] [address] PCP - General Family Medicine 11/21/18 INFORMATION [...] BE BASED ON THE PRIMARY CLINICAL RECORDS. [facility] provides no warranty or guarantee of the accuracy or completeness of information in this document.
== END | disposition home or self-care (01) ==
LOC: US 11:25
PROVIDERS: PCP Family Medicine; Referring Provider Advanced Practice Midwife; Visit Provider Advanced Practice Midwife
DX: N93.9 Abnormal uterine and vaginal bleeding, unspecified (principal)
CPT/HCPCS: 76830

== ENCOUNTER 2023-12-05 13:11 | Day surgery (SDC) | payer OTHER, SELFPAY ==
[2023-12-05] VITALS (8 sets, daily range): BP systolic 123–151; BP diastolic 71–95; PULSE 64–104; RESP 12–18; TEMP 36.8–37.6; O2SAT 94–100; BMI 40.1
--- NOTE | 2023-12-05 06:03 | HP.PCM_ITS ---
History and Physical Date of Admission: 12/05/23 Intake Vital Signs 10/25/2413:26 11/13/2409:10 11/13/2409:12 Height 5 ft 3 in 5 ft 3 in 5 ft 3 in Weight: 221 lb BMI 39.1 BP 143/97 H Intake Visit Reasons: Preop consult per [facility] [employer] Insurance Assessor Required: No Is patient in pain?: No Allergies No Known Allergies Allergy (Unverified 11/14/23 10:11) Medications ascorbic acid (vitamin C) 1,000 mg tablet 1 g PO Q6H 11/27/17 [History Confirmed 11/14/23] multivitamin,ph-ivuz-bfwnotfb (Complete Multivitamin tablet) 1 tab PO QDAY 11/27/17 [History Confirmed 11/14/23] citalopram 10 mg tablet mg PO 10/26/23 [History Confirmed 11/14/23] losartan 25 mg tablet mg PO 10/26/23 [History Confirmed 11/14/23] magnesium 200 mg tablet 200 mg PO DAILY 10/26/23 [History Confirmed 11/14/23] megestrol 40 mg tablet 40 mg PO DAILY 11/14/23 [History Confirmed 11/14/23] PFSH Medical History Knee pain Ovarian cyst Surgical History History of wisdom tooth extraction Family History Grandmother Breast cancer PaternalGrandmother Breast cancer Maternal Social History current occupational status: employed current occupation: [employer] Smoking Status: Never smoker alcohol intake: never substance use type: does not use seatbelt use: always do you feel safe at home: Yes additional social history: Single HPI Preop consult per Details: VICKY MCKEON is a 43 year old who presents for endometrial lesion. she has been on high dose megace for history of AUB prescribed by dr gaytan in the past, hasn't been bleeding, and then had an ultraosund done that showed an endoemtrila lesion either a polyp or fibroid. she denies any pelvic pressure or pain, no bleeding or discharge. she struggles with some mood side effects on the hormone that she didn't realize previously was a side effect pottentioally of the pill. she is open to other therapies, didn't want an ablation or hysterecotmy necessairly. she doens't want an IUD. Female Reproductive History Menopausal Symptoms: No night sweats History 0 Elective abortions Hx Para Spontaneous abortions Hx # Term Pregnancies Ectopic pregnancies Hx # Pregnancies Multiple births # of living children ROS Const Constitutional: Denies fatigue, night sweats, weight gain or weight loss ENT ENT: Reports system reviewed and no additional complaints, except as documented Cardio Card: Denies chest pain Resp Resp: Denies cough or dyspnea GI GI: Reports as per HPI; Denies abdominal pain, constipation, nausea or vomiting : Denies nipple discharge, urinary frequency, urinary incontinence, urinary hesitancy, urinary urgency, vaginal discharge, vaginal dryness, vaginal odor or vaginal pruritus Musc Musc: Denies arthralgias, back pain or muscle weakness Skin Skin/Breast: Denies alopecia, change in hair, dry skin, breast mass, breast pain, breast skin changes or nipple discharge Neuro Neuro: Reports system reviewed and no additional complaints, except as documented Psych Psych: Reports system reviewed and no additional complaints, except as documented Endo Endo: Denies cold intolerance, excessive sweating, heat intolerance or polydipsia Jag/Lymph Hematologic/Lymphatic: Denies easy bleeding, Denies easy bruising and Denies lymphadenopathy Exam Const General: cooperative, healthy appearing, comfortable and no acute distress Orientation: alert HENMT Head: normal to inspection and normocephalic Ears: hearing grossly normal bilaterally and external ears normal Nose: external nose normal and nares normal Face and sinus: normal facial exam Neck Neck: normal visual inspection and no lymphadenopathy Thyroid: thyroid normal Chest Chest palpation & inspection: normal inspection of the chest Resp Effort & Inspection: normal respiratory effort Auscultation: clear to auscultation bilaterally Cardio Rate: regular rate Rhythm: regular rhythm Heart Sounds: S1 normal and S2 normal GI Inspection: normal to inspection and non-distended Palpation: soft and no hepatosplenomegaly Musc Other: gross motor intact no deficits, full bilateral strength Skin General: no rashes or lesions noted Neuro General: patient alert, patient awake, moves all extremities and no focal motor deficits Motor: muscle tone normal throughout Extrem General: normal to inspection and no pedal edema Psych Appearance: grossly normal Mental Status: mental status grossly normal Affect: normal affect Speech and Movement: speech and movement normal Coding Level of Care Code Off vis,est,level 4 Diagnoses Endometrial mass N94.89 Abnormal uterine bleeding N93.9 Assessment and Plan Assessment and Plan (1) Endometrial mass: Status: Acute Comment: recommend d and c hysteroscopy symphion (2) Abnormal uterine bleeding: Status: Acute Comment: has been on megace, discussed different options Medications: Changed From megestrol 40 mg PO BID To megestrol 40 mg PO DAILY Plan After discussing the patient's diagnosis and treatment plan options, patient wishes to proceed with surgical management. I have discussed with the patient the risks, benefits, and alternatives of the procedure which include but are not limited to risks of anesthesia, bleeding, infection, possible damage to bowel, bladder, or surrounding vasculature which could lead to additional surgery to evaluate any complications. Patient agrees to procedure and wishes to proceed. ACOG/uptodate references given for additional information regarding procedure. UPDATE- I have seen the patient and performed any clinically relevant updates to the history and physical exam. Milena Villa MD
[2023-12-05 14:02] LABS: Hematocrit 41.9 % (37-47); Hemoglobin 13.7 g/dL (12.0-15.0); Mean Corp Hgb Conc 32.7 g/dL (32-36); Mean Corpuscular Hgb 27.9 pg (27.0-32.0); Mean Corpuscular Volume 85.3 fL (81-99); Mean Platelet Vol. 9.1 fl (6.2-12.0); Platelet Count 384 K/mm3 (150-450); RBC Distribution Width CV 12.6 % (11.6-14.6); RBC Distribution Width SD 38.9 fl (35.1-43.9); Red Blood Count 4.91 M/mm3 (4.2-5.4); White Blood Count 8.3 K/mm3 (4.4-11.0)
[2023-12-05 14:04] LABS: Internal QC Validated? YES +Cl - CLEAR BKGD; Pregnancy, Urine Negative Negative
[2023-12-05] MEDS: Lactated Ringers 1,000 ML 15 ML IV (14:04)
--- NOTE | 2023-12-05 14:45 | EMB_PTH ---
PATIENT: VICKY MCKEON LOC: [facility] U#:[id number] AGE/SX: 43/F ROOM: RE12/05/[address]: Dr. Milena Villa MD : 1980 BED: DIS: 12/05/2023 SPEC #: [id number] RECD: 12/06/23 05:49 STATUS: YANET RELucas #: [id number] GRAHAM: 12/05/23 14:[address]: Milena Villa DEPT: SURGICAL PATHOLOGY RECD BY: Divya Perez ENTERED: 12/06/23 09:01 SP TYPE: ENDOM BX/C OTHR DR: Dr. 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 See comment. GÉNESIS/ 12/14/2023 COMMENT The specimen is sent to [facility] for expert opinion, reviewed by Dr. Mcbride and the above diagnosis is rendered. The complete report is viewable in the patient's EMR. Case has been reviewed in consultation with Dr. Blake who concurs with the above diagnosis. IDC:GÉNESIS MICROSCOPIC DESCRIPTION Slides are reviewed. GROSS DESCRIPTION Received in fixative is one container labeled with the patient's name and designated Endometrial Curettings. The specimen consists of multiple irregular fragments of connors soft tissue mixed with blood clots that in aggregate measure 5.0 x 3.0 x 0.3 cm. The specimen is totally submitted in two cassettes. GÉNESIS/ 12/06/23 TC:5 CPT:67365
[2023-12-05] MEDS: Lidocaine 1% (20 ml mdv) 20 ML Vial (15:09)
--- NOTE | 2023-12-05 15:23 | PCM.OPRPT ---
Problems Associated Problem List Diagnoses (1) Abnormal uterine bleeding: (2) Endometrial mass: Report of Operation Date of Procedure: 12/05/23 Pre-Operative Diagnosis: see problem list Post-Operative Diagnosis: same Surgery/Procedure Performed:: D&C hysteroscopy polypectomy using symphion Description of Surgical Findings:: polyp on posterior wall Surgeon: Milena Villa data conversion analyst: None Type of Anesthesia: Local MAC Special Medications: none Specimen's removed: EMC, polyp Drains: none Estimated Blood Loss (mL): 50 Fluids Replaced: crystalloid Description of Procedure: Patient was prepped and draped in a normal sterile fashion under MAC anesthesia. A weighted speculum was placed in the vagina and the anterior lip of the cervix was grasped with a single-tooth tenaculum. A paracervical block was placed with 1% lidocaine. Cervix was progressively dilated to allow passage of a 5 mm hysteroscope. The lining was fully visualized and noted to have posterior wall polyp . Uterine sounded to 9 cm. Using the symphion device, the polyp was progressively removed without complications. Direct visual curettage was performed using the device , and all specimens were sent to pathology. All instruments were removed from the vagina and excellent hemostasis was noted. Patient was awoken and taken to recovery in stable condition. Grafts/Implants Used: none Procedure Start Time: 15:07 Procedure Stop Time: 15:18 Complications none Admit VTE Documentation VTE Present on Admission: No VTE Mechan Device Prophylaxis: SCD's Multi Select Codes Urinary/Genital Urinary/Genital CPT Codes: 85937 Hysteroscopy,EMC, Polypectomy
--- NOTE | 2023-12-05 15:24 | DCINST_ITS ---
Discharge Instructions Diet Discharge Diet: No restrictions Activity Discharge Activity: Return to Normal Activity, May Shower and May Take a Tub Bath (after 1 week) May resume sexual activity in: 1-2 weeks Weight Bearing Status: Weight bearing as tolerated Lifting Restrictions: none Dressing / Incision Call your doctor if you observe: Fever of 101 or Higher, Using more than 1 pad per hour, Shortness of breath and Uncontrolled pain Follow Up Care Please Follow Up With: Milena Villa MD When: Call [phone] to schedule appointment. Test Results: Test results from this visit will be discussed in further detail at your follow- up appointment, if applicable. Discharge Plan Admission Attending Provider: Milena Villa Primary Care Provider: Rose Aden Discharge Orders/Prescriptions Prescriptions: No Action losartan 25 mg tablet 25 mg PO DAILY Patient Comments: take 1 tablet by mouth once daily citalopram 10 mg tablet 10 mg PO DAILY magnesium 200 mg tablet 200 mg PO DAILY megestrol 40 mg tablet 40 mg PO DAILY calcium carbonate-vitamin D3 600 mg-5 mcg (200 unit) tablet 1 tab PO DAILY zinc 50 mg tablet 50 mg PO DAILY Referrals / Follow Up: Rose Aden MD [Primary Care Provider] - Disposition Disposition (needs filled in before D/C Order can be placed): Home, Self Care
== END 2023-12-05 16:45 | disposition home or self-care (01) ==
LOC: SDC 13:14 → AC 13:16
PROVIDERS: PCP Family Medicine; Referring Provider Family Medicine; Visit Provider Obstetrics & Gynecology
PROC: 0UB98ZZ Excision of Uterus, Via Natural or Artificial Opening Endoscopic (ICD-10-PCS; CPT 58558; principal; 2023-12-05 14:30)
DX: N84.0 Polyp of corpus uteri (principal); N93.9 Abnormal uterine and vaginal bleeding, unspecified; I10 Essential (primary) hypertension; Z79.899 Other long term (current) drug therapy
CPT/HCPCS: 58558; 00952; 81025; 85027; 86850; 86900; 86901; 88305; J7120; J2405

== ENCOUNTER → 2024-05-23 | Outpatient (CLI) | payer OTHER, SELFPAY ==
[2024-05-23 12:13] LABS: Absolute Lymphocyte Count 1.52 X10^3/uL (0.83-4.51); Absolute Neutrophil Count 4.7 X10^3/uL (2.0-7.7); Basophil# 0.05 X10^3/uL; Basophil% 0.7 % (0-1); Eosinophil# 0.21 X10^3/uL; Hematocrit 42.1 % (37-47); Hemoglobin 13.7 g/dL (12.0-15.0); Lymphocyte # 1.52 X10^3/ul (0.83-4.51); Lymphocyte % 21.9 % (19-41); Mean Corp Hgb Conc 32.5 g/dL (32-36); Mean Corpuscular Hgb 28.6 pg (27.0-32.0); Mean Corpuscular Volume 87.9 fL (81-99); Mean Platelet Vol. 9.2 fl (6.2-12.0); Monocyte# 0.49 X10^3/uL; Monocyte% 7.1 % (0-10); NRBC Flagged by Analyzer 0 % (0-5); Neutrophil # 4.67 X10^3/uL (2.7-7.7); Neutrophil % 67.2 % (47-70); Platelet Count 341 K/mm3 (150-450); Red Blood Count 4.79 M/mm3 (4.2-5.4)
[2024-05-23 13:26] LABS: Anion Gap 5 (5-15); BUN 12 mg/dL (7-18); BUN/Creat Ratio 15.6 RATIO (10-20); Calcium,Total 9.4 mg/dL (8.5-10.1); Chloride 106 mmol/L (98-107); Creatinine, Serum 0.77 mg/dL (0.55-1.02); EST Glomerular Filtration Rate 86 mL/min (>60); Est Glom Filt Rate - Afr Amer 104 mL/min (>60); Glucose 93 mg/dL (74-106); Sodium Level 137 mmol/L (136-145); Thyroid Stim Hormone (TSH) 0.818 uIU/mL (0.358-3.740)
== END | disposition home or self-care (01) ==
LOC: BFHLAB 10:34
PROVIDERS: PCP Family Medicine; Referring Provider Family Medicine; Visit Provider Family Medicine
DX: I10 Essential (primary) hypertension (principal); F32.A Depression, unspecified
CPT/HCPCS: 36415; 80048; 84443; 85025

== ENCOUNTER 2024-07-17 06:56 | Day surgery (SDC) | payer OTHER, SELFPAY ==
[2024-07-17] VITALS (8 sets, daily range): BP systolic 139–154; BP diastolic 89–99; PULSE 63–81; RESP 16–18; TEMP 36.3–36.6; O2SAT 96–100; BMI 41.3
--- NOTE | 2024-07-17 07:05 | PRE.ANES_ITS ---
ASA Classification* ASA Classification ASA Classification: 2 Assessment & Plan Anesthesia* Anesthesia Assessment Anesthesia Assessment: Discussed sedation and/or anesthesia options, risks, benefits, and alternatives with patient/parents/legal guardian/POA. Questions invited. The patient/parents/legal guardian/POA seems to understand and agrees to proceed with anesthesia plan. Reviewed the physical assessment, medical history, allergy history and patient home medications list prior to surgery/procedure/anesthetic and documented any changes. Performed airway and anesthesia risk assessments. Anesthesia Type Anesthesia Type: MAC Anesthesia Focused Assessment* Airway Assessment Mouth opens: >3 cm Mallampati Score: II Focused Labs Anesthesia Preop lab: CBC WBC 7.0 K/mm3 (4.4-11.0) 05/23/24 10:35 RBC 4.79 M/mm3 (4.2-5.4) 05/23/24 10:35 Hgb 13.7 g/dL (12.0-15.0) 05/23/24 10:35 Hct 42.1 % (37-47) 05/23/24 10:35 Plt Count 341 K/mm3 (150-450) 05/23/24 10:35 CHEMISTRY Potassium 4.0 mmol/L (3.5-5.1) 05/23/24 10:35 Sodium 137 mmol/L (136-145) 05/23/24 10:35 BUN 12 mg/dL (7-18) 05/23/24 10:35 Creatinine 0.77 mg/dL (0.55-1.02) 05/23/24 10:35 Glucose 93 mg/dL (74-106) 05/23/24 10:35 TSH 0.818 uIU/mL (0.358-3.740) 05/23/24 10:35 COAG Urine Test Negative Negative 12/05/23 13:36 Pre-Assessment Diagnosis/Proposed Procedure Planned Operative Procedure(s): CSCOPE Anesthesia History Anesthesia History - glue maker bone: Anesthesia History - glue maker bone Hx Hospitalization No 07/15/24 12:45 Any Problems With Anesthesia No 07/15/24 12:45 Cholinesterase deficiency No 07/15/24 12:45 You/Your Family Experience No 07/15/24 12:45 fever (hyperthermia) with Relationship Recent Exposure to Contagious No 04/16/24 12:04 Disease Does patient have nerve No 07/15/24 12:45 stimulator Patient instructed to have device shut off --Does patient have Pacemaker or ICD? When Was Last Pacemaker Check QUESTION #4 FULL TEXT: You/Your Family Experience fever (hyperthermia) with Anesthesia Last Oral Intake Last Oral intake: Last Oral Intake NPO since Meds taken in AM with sips of water? Meds patient instructed to take am of surgery PONV PONV - glue maker bone: PONV - glue maker bone Female Yes 07/15/24 12:45 HX of Motion Sickness No 07/15/24 12:45 HX of N/V After Surgery No 07/15/24 12:45 Non-Smoker Yes 07/15/24 12:45 Duration of Surgery greater No 07/15/24 12:45 than 60 minutes Number of Risk Factors 2 07/15/24 12:45 PONV Score Moderate Risk 07/15/24 12:45 Height & Weight Height & Weight: Anesthesia: Height & Weight Height 5 ft 2 in 05/14/24 13:50 Respiratory Assessment Respiratory Assessment - glue maker bone: Respiratory Tract Infection Hx - glue maker bone Hx Respiratory Tract Infection No 07/15/24 12:45 STOP Sleep Apnea STOP Sleep Apnea - glue maker bone: STOP Sleep Apnea - glue maker bone Hx Hypertension Yes: CONTROLLED ON MED 07/15/24 12:45 Hx Sleep Apnea No 07/15/24 12:45 CPAP BIPAP Do you snore loudly (louder No 07/15/24 12:45 than talking or can be heard Do you often feel tired/ No 07/15/24 12:45 fatigued/ sleepy during daytime? Has anyone observed you stop No 07/15/24 12:45 breathing during sleep? STOP Results Negative 07/15/24 12:45 QUESTION #5 FULL TEXT : Do you snore loudly (louder than talking or can be heard through closed doors)? Tobacco Use History Tobacco Use History - glue maker bone: Tobacco Use History - glue maker bone Tobacco Use Smoking Status Never smoker 07/15/24 12:45 Hx Tobacco Use No 07/15/24 12:45 Years Smoking Packs Smoked per Day Smoking Cessation Date was within the last 15 years Hx Smoking Cessation Date Hx Smoking Cessation Counseling Hematologic Medial History Hematologic Hx - glue maker bone: Hematologic Medical Hx - aging box hand Hx of Blood Transfusion No 07/15/24 12:45 Hx of Transfusion in last 3 No 07/15/24 12:45 Months Date of Last Transfusion (if within last 3 months) Ever experience any problems No 07/15/24 12:45 with transfusion(s)? Specify any problems Hx of Preganancy in last 3 N/A 07/15/24 12:45 Months Nurse Filling Out Transfusion NBUCHER 07/15/24 12:45 & Questions: Date: 07/15/24 07/15/24 12:45 Time: 12:45 07/15/24 12:45 Patient unable to answer at this time (ie. confused, unrespo /Reproduction History /Reproductive History - glue maker bone: /Reproductive Hx- glue maker bone Hx Now Gestational Age (in weeks): EDC: Hx Hx Para Hx Section SAB No 07/15/24 12:45 PFSH Medical History Family hx colonic polyps Wears glasses History of steroid therapy Injury of head and neck Loss of consciousness Hypertension Ovarian cyst Knee pain Home Medications ?Medication ?Instructions ?Recorded ?Last Taken ?Type citalopram 10 mg tablet 20 mg PO DAILY 10/26/23 Unknown History losartan 25 mg tablet 25 mg PO DAILY 10/26/23 12/05/23 History magnesium 200 mg tablet 200 mg PO DAILY 10/26/23 Unknown History calcium 600 mg (as 1 tab PO DAILY 11/24/23 Unknown History carbonate)-vitamin D3 5 mcg (200 unit) tablet zinc 50 mg tablet 50 mg PO DAILY 11/24/23 Unknown History Bacillus coagulans-inulin 1 1 cap PO DAILY 04/29/24 Unknown History billion cell-250 mg capsule (Probiotic with Prebiotic) estradiol 0.075 mg/24 hr 1 patch transdermal 2XW #24 ea 05/14/24 Unknown Rx semiweekly transdermal patch (Vivelle-Dot) Allergy/AdvReac Type Severity Reaction Status Date / Time No Known Allergies Allergy Verified 07/15/24 12:43 Family History Grandmother Breast cancer Paternal Grandmother Breast cancer Maternal Father Colon polyps Mother Colon polyps Sister Colon polyps Surgical History History of hysterectomy (01/13/24) History of wisdom tooth extraction Social History current occupational status: employed current occupation: [employer] Smoking Status: Never smoker alcohol intake: never substance use type: does not use seatbelt use: always do you feel safe at home: Yes additional social history: Single Review of Systems (Anesthesia) ROS Narrative System reviewed and no additional complaints, except as documented.
--- NOTE | 2024-07-17 07:07 | HP.PCM_ITS ---
[facility] - General General Date of Service: 07/17/24 HPI Narrative VICKY MCKEON, is a 44 F who presents for screening colonoscopy. Patient never had previous colonoscopy. Patient denies any family history of colon cancer. Patient's sister and dad did have polyps unsure of the exact size. Patient has bowel movements daily denies any blood. Patient denies any chronic abdominal pain/nausea/vomiting/reflux. PFSH Medical History Family hx colonic polyps Wears glasses History of steroid therapy Injury of head and neck Loss of consciousness Hypertension Ovarian cyst Knee pain Home Medications ?Medication ?Instructions ?Recorded ?Last Taken ?Type citalopram 10 mg tablet 20 mg PO DAILY 10/26/23 Unknown History losartan 25 mg tablet 25 mg PO DAILY 10/26/23 07/17/24 History magnesium 200 mg tablet 200 mg PO DAILY 10/26/23 Unknown History calcium 600 mg (as 1 tab PO DAILY 11/24/23 Unknown History carbonate)-vitamin D3 5 mcg (200 unit) tablet zinc 50 mg tablet 50 mg PO DAILY 11/24/23 Unknown History Bacillus coagulans-inulin 1 1 cap PO DAILY 04/29/24 Unknown History billion cell-250 mg capsule (Probiotic with Prebiotic) estradiol 0.075 mg/24 hr 1 patch transdermal 2XW #24 ea 05/14/24 Unknown Rx semiweekly transdermal patch (Vivelle-Dot) Allergy/AdvReac Type Severity Reaction Status Date / Time No Known Allergies Allergy Verified 07/17/24 07:12 Family History Grandmother Breast cancer Paternal Grandmother Breast cancer Maternal Father Colon polyps Mother Colon polyps Sister Colon polyps Surgical History History of hysterectomy (01/13/24) History of wisdom tooth extraction Social History current occupational status: employed current occupation: [employer] Smoking Status: Never smoker alcohol intake: never substance use type: does not use seatbelt use: always do you feel safe at home: Yes additional social history: Single Past Medical/Surgical History Planned Operation Planned Operative Procedure(s): CSCOPE Previous Hospitalizations/Surgeries HX Hospitalizations: No Any Problems With Anesthesia: No You/Your Family Experience Fever (Hyperthermia) With Anes: No Cholinesterase deficiency: No Cardiovascular Hx Hypertension: Yes (CONTROLLED ON MED) Respiratory Hx Chronic Obstructive Pulmonary Disease (COPD): No Hx Asthma: No Hx Emphysema: No Hx Sleep Apnea: No Hx Respiratory Tract Infection/Cold (presently): No Do You Snore Loudly (louder than talking or can be heard): No Do You Often Feel Tired/ Fatigued/ Sleepy Dring Daytime?: No Has Anyone Observed You Stop Breathing During Sleep?: No Result (for STOP score): Negative Smoking Status: Never smoker Neurological Hx Seizures: No Does patient have nerve stimulator: No Miscellaneous Recent Exposure to Contagious Disease: No Allergies No Known Allergies Allergy (Verified 07/17/24 07:12) Discharge Is Pt Admitted From a [facility], or a Nursing Home: No After D/C, Where Do you Plan to Go: Return Home Physical Exam Const alert, oriented x3 and no apparent distress HEENT normocephalic and head/scalp atraumatic Resp normal respiratory effort Cardio regular rate GI soft to palpation and non-tender; Negative for non-distended Palpation: Negative for guarding Extremity no clubbing, cyanosis or edema Skin no rashes or lesions noted Neuro CN's II-XII intact bilaterally Psych mental status grossly normal Assessment & Plan Assessment/Plan (1) Encounter for screening for malignant neoplasm of colon: Surgery Risks - Colonoscopy I discussed with the patient the risks of the procedure: Yes Risks Include but are not Limited To: Risks include but are not limited to: Bleeding, perforation requiring further surgery, inability to complete colonoscopy requiring barium enema.
--- NOTE | 2024-07-17 08:42 | OP.CCLET_ITS ---
07/17/2024 Rose Aden [place] [id number] [address] Re : Colonoscopy procedure for Sada Avila Dear Dr. Aden This procedure was performed on Wednesday, July 17, 2024. My impressions and recommendations are as follows: Impressions : - The entire examined colon is normal on direct and retroflexion views. - No specimens collected. Recommendations : - Discharge patient to home. - Resume previous diet. - Continue present medications. - Repeat colonoscopy in 10 years for screening purposes. My findings are described in the full procedure note, which is enclosed. If I can be of further assistance, please feel free to contact me at Doctor phone number(s): , Work: . Sincerely, MD Nkechi Strauss MD 07/17/2024 8:42:36 AM This report has been signed electronically.
--- NOTE | 2024-07-17 08:42 | OP.COLON_ITS ---
Patient Name: Sada Avila Procedure Date: 07/17/2024 8:09 AM Date of : 1980 Age: 44 Procedure: Colonoscopy Indications: Screening for colorectal malignant neoplasm Providers: Nkechi Ryan MD Referring MD: Rose Aden Medicines: Monitored Anesthesia Care Patient Profile: This is a 44 year old female. Last Colonoscopy: none. The patient's first colonoscopy is today. Complications: No immediate complications. Procedure: Pre-Anesthesia Assessment: - Prior to the procedure, a History and Physical was performed, and patient medications and allergies were reviewed. The patient's tolerance of previous anesthesia was also reviewed. The risks and benefits of the procedure and the sedation options and risks were discussed with the patient. All questions were answered, and informed consent was obtained. Prior Anticoagulants: The patient has taken no anticoagulant or antiplatelet agents. ASA Grade Assessment: Per anesthesia. After reviewing the risks and benefits, the patient was deemed in satisfactory condition to undergo the procedure. After I obtained informed consent, the scope was passed under direct vision. Throughout the procedure, the patient's blood pressure, pulse, and oxygen saturations were monitored continuously. The Colonoscope was introduced through the anus and advanced to the cecum, identified by appendiceal orifice and ileocecal valve. The colonoscopy was performed without difficulty. The patient tolerated the procedure well. The quality of the bowel preparation was good. Scope In: 8:18:01 AM Scope Withdrawal Time 0 hours 12 minutes 47 seconds Scope Out: 8:37:44 AM Total Procedure Duration Time 0 hours 19 minutes 43 seconds Findings: The perianal and digital rectal examinations were normal. The entire examined colon appeared normal on direct and retroflexion views. Impression: - The entire examined colon is normal on direct and retroflexion views. - No specimens collected. Recommendation: - Discharge patient to home. - Resume previous diet. - Continue present medications. - Repeat colonoscopy in 10 years for screening purposes. Procedure Code(s): --- Professional --- G0121, PT, Colorectal cancer screening; colonoscopy on individual not meeting criteria for high risk Diagnosis Code(s): --- Professional --- Z12.11, Encounter for screening for malignant neoplasm of colon CPT copyright 2021 [employer] [place] [employer]. All rights reserved. The codes documented in this report are preliminary and upon aqua ammonia operator review may be revised to meet current compliance requirements. MD Nkechi Strauss MD 07/17/2024 8:42:36 AM This report has been signed electronically. Number of Addenda: 0 Note Initiated On: 07/17/2024 8:09 AM
--- NOTE | 2024-07-17 08:46 | PCM.POST.ANE ---
Anesthesia: Postop Eval I Current Vital Signs Temperature: 97.4 F Pulse Rate: 81 Blood Pressure: 146/89 Respiratory Rate: 16 Pulse Ox: 100 Oxygen Delivery Method: Room Air Assessment Airway patent: Yes Spontaneous unlabored respirations: Yes Mental status: Awake and Calm nausea: No Vomiting: No Anesthesia Complication: No Fluid Hydration Crystalloid volume administer (ml): 60 Total IV fluid infused: 60 Progress Note Anesthesia document: Postop Eval 1 completed: Yes
--- NOTE | 2024-07-17 09:55 | PCM.POSTANE2 ---
Anesthesia Postop Eval I Sum Postop Eval Completion status Anesthesia document: Postop Eval 1 completed: Yes Anesthesia Postop Eval I Summary Anesthesia Postop Eval I Summary: Anesthesia Postop Eval I: Assessment Summary Airway patent Yes 07/17/24 08:47 [email or web address] Spontaneous unlabored Yes 07/17/24 08:47 [email or web address] respirations Mental status Awake,Calm 07/17/24 08:47 [email or web address] nausea No 07/17/24 08:47 [email or web address] Vomiting No 07/17/24 08:47 [email or web address] Anesthesia Postop Eval I: Fluid Summary Crystalloid volume administer 60 07/17/24 08:47 [email or web address] (ml) Colloids volume administered ( ml) Blood Product volume administered (ml) Total IV fluid infused 60 07/17/24 08:47 [email or web address] Anesthesia Postop Eval I: Summary Notes Anesthesia Complication No 07/17/24 08:47 [email or web address] Anesthesia Complication Comment: Post-operative progress note Anesthesia: Postop Eval II Evaluation Mental status: Awake Pain Level: 0 nausea: No Vomiting: No
== END 2024-07-17 09:45 | disposition home or self-care (01) ==
LOC: EN 06:58 → AC 07:00
PROVIDERS: PCP Family Medicine; Referring Provider Family Medicine; Visit Provider Surgery
PROC: 0DJD8ZZ Inspection of Lower Intestinal Tract, Via Natural or Artificial Opening Endoscopic (ICD-10-PCS; CPT 45378; principal; 2024-07-17 07:55)
DX: Z12.11 Encounter for screening for malignant neoplasm of colon (principal); I10 Essential (primary) hypertension; Z83.719 Family history of colon polyps, unspecified; Z79.899 Other long term (current) drug therapy
CPT/HCPCS: 45378; A4216; J2405

== ENCOUNTER → 2024-08-09 | Outpatient (CLI) | payer OTHER, SELFPAY ==
[2024-08-09 12:23] LABS: Absolute Lymphocyte Count 1.56 X10^3/uL (0.83-4.51); Absolute Neutrophil Count 4.4 X10^3/uL (2.0-7.7); Basophil# 0.05 X10^3/uL; Basophil% 0.7 % (0-1); Eosinophil# 0.22 X10^3/uL; Eosinophils% 3.3 % (0-5); Hematocrit 42.6 % (37-47); Hemoglobin 13.9 g/dL (12.0-15.0); Lymphocyte # 1.56 X10^3/ul (0.83-4.51); Lymphocyte % 23.1 % (19-41); Mean Corp Hgb Conc 32.6 g/dL (32-36); Mean Corpuscular Hgb 28.7 pg (27.0-32.0); Mean Platelet Vol. 9.5 fl (6.2-12.0); Monocyte# 0.51 X10^3/uL; Monocyte% 7.6 % (0-10); NRBC Flagged by Analyzer 0 % (0-5); Neutrophil # 4.39 X10^3/uL (2.7-7.7); Neutrophil % 65.2 % (47-70); Platelet Count 372 K/mm3 (150-450); RBC Distribution Width CV 13.4 % (11.6-14.6); RBC Distribution Width SD 43.5 fl (35.1-43.9); Red Blood Count 4.84 M/mm3 (4.2-5.4); White Blood Count 6.7 K/mm3 (4.4-11.0)
[2024-08-09 12:44] LABS: AST(SGOT) 26 U/L (15-37); Alanine Aminotransfer ALT/SGPT 62 U/L (13-56); Albumin, Serum 3.7 g/dL (3.2-5.0); Alkaline Phosphatase 119 U/L (45-117); Anion Gap 5 (5-15); BUN 9 mg/dL (7-18); BUN/Creat Ratio 10.2 RATIO (10-20); Calcium,Total 9.1 mg/dL (8.5-10.1); Chloride 108 mmol/L (98-107); Cholesterol 189 mg/dL (200); Creatinine, Serum 0.88 mg/dL (0.55-1.02); EST Glomerular Filtration Rate 74 mL/min (>60); Est Glom Filt Rate - Afr Amer 89 mL/min (>60); Globulin 3.6 g/dL (2.2-4.2); Glucose 89 mg/dL (74-106); High Density Lipoprotein 58 mg/dL; Protein, Total 7.3 g/dL (6.4-8.2); Sodium Level 138 mmol/L (136-145); Triglycerides 80 mg/dL; Very Low Density Lipoprotein 16 mg/dL (5-40)
== END | disposition home or self-care (01) ==
LOC: BFHLAB 11:00
PROVIDERS: PCP Family Medicine; Visit Provider Family Medicine
DX: Z00.00 Encounter for general adult medical examination without abnormal findings (principal); I10 Essential (primary) hypertension; F32.A Depression, unspecified
CPT/HCPCS: 36415; 80053; 80061; 85025

== ENCOUNTER → 2024-08-12 | Outpatient (CLI) | payer OTHER, SELFPAY ==
--- NOTE | 2024-08-12 15:38 | BI_ITS ---
MAMMOGRAPHY - BILATERAL SCREENING 3-D TOMOSYNTHESIS REASON FOR EXAM: Female, 44 years old. Screening for breast cancer PERTINENT HISTORY: No significant family history. TECHNIQUE: 2-D mammograms and 3-D Tomosynthesis of the breast (s) were performed. CAD was performed. COMPARISON: 08/10/2023 FINDINGS: The breast composition is composed of scattered fibroglandular density. Scattered benign calcifications are seen. No dense spiculated masses or suspicious microcalcifications are identified. No architectural distortion is identified. There is no skin thickening or retraction. There has been no significant change since the prior study. BI/SCRN MAMM (CAD)W/IVETH BILAT IMPRESSION: No mammographic signs of malignancy. Routine yearly mammograms recommended. ASSESSMENT CATEGORY: BIRADS Category 1: Negative. A letter regarding these results will be sent to the patient by the facility within 30 days. FOLLOW UP RECOMMENDATION: Yearly follow up mammogram recommended. (A) Approximately 10% of breast cancers are not detected by mammography. A normal mammogram should not delay biopsy of a clinically suspicious abnormality. Electronically Signed: Dino June MD at 18:07 EST ,
== END | disposition home or self-care (01) ==
LOC: OPBI 15:38
PROVIDERS: PCP Family Medicine; Referring Provider Advanced Practice Midwife; Visit Provider Advanced Practice Midwife
DX: Z12.31 Encounter for screening mammogram for malignant neoplasm of breast (principal)
CPT/HCPCS: 77063; 77067

== ENCOUNTER → 2025-02-05 | Outpatient (CLI) | payer OTHER, SELFPAY | END | disposition home or self-care (01) | LOC: LABSPEC 15:50 | PROVIDERS: PCP Family Medicine; Visit Provider Nurse Practitioner Family | DX: J02.9 Acute pharyngitis, unspecified (principal) | CPT/HCPCS: 87070 ==

== ENCOUNTER → 2025-02-24 | Outpatient (CLI) | payer OTHER, SELFPAY | END | disposition home or self-care (01) | LOC: MTRAD 12:40 | PROVIDERS: PCP Family Medicine; Referring Provider Nurse Practitioner Family; Visit Provider Nurse Practitioner Family | DX: R05.9 Cough, unspecified (principal) | CPT/HCPCS: 71046 ==